=== PATIENT | female | born 1975 | race Caucasian/White ===

== ENCOUNTER 2024-09-10 18:23 | Emergency (ER) | payer SELFPAY ==
[~2024-09-10] VITALS: Ht 165.1 cm; Wt 45.0 kg
[2024-09-10 18:34] VITALS: BP 96/59; PULSE 87; RESP 18; TEMP 99.4; O2SAT 99
[2024-09-10] MEDS ORDERED: OLAN5TAB3 PO (19:41)
== END 2024-09-10 19:51 | disposition home or self-care (01) ==
LOC: ER 18:24
DX: Z76.0 Encounter for issue of repeat prescription (principal)
CPT/HCPCS: 99281

== ENCOUNTER 2024-12-23 20:32 | Emergency (ER) | payer OTHER ==
[~2024-12-23] VITALS: Ht 165.1 cm; Wt 47.7 kg
[~2024-12-23 20:32] MED LIST: OLAN5TAB3 PO
[2024-12-23] MEDS: OLANZapine 2.5MG tablet PO ONE (21:58)
[2024-12-23] MEDS: LORazepam 1 MG tablet PO ONE (21:58)
[2024-12-23] MEDS ORDERED: OLAN10TA3 PO (23:12)
[2024-12-23] MEDS ORDERED: LORA-269 PO (23:12)
[2024-12-23 23:28] VITALS: BP 123/54; PULSE 78; RESP 20; TEMP 98.6; O2SAT 99
== END 2024-12-23 23:30 | disposition home or self-care (01) ==
LOC: ER 20:33
DX: F41.9 Anxiety disorder, unspecified (principal); G47.00 Insomnia, unspecified; F99 Mental disorder, not otherwise specified
CPT/HCPCS: 93005; 99283